=== PATIENT | female | born 1965 | race African-American/Black ===

== ENCOUNTER 2021-10-17 10:36 | Inpatient (IN) | payer OTHER ==
[2021-10-17 11:42] VITALS: BMI 26.9
[2021-10-17] MEDS ORDERED: LOPERAMIDE HCL 2 MG CAPSULE PO PRN (14:12)
[2021-10-17] MEDS ORDERED: hydrOXYzine PAMOATE 25 MG CAPSULE (FP) PO PRN (14:12)
[2021-10-17] MEDS ORDERED: MENTHOL/PHENOL 1 EACH UD MM PRN (14:12)
[2021-10-17] MEDS ORDERED: IBUPROFEN 400 MG TABLET (FP) PO PRN (14:12)
[2021-10-17] MEDS ORDERED: NICOTINE POLACRILEX 4 MG GUM BUC PRN (14:12)
[2021-10-17] MEDS ORDERED: MAG HYDROX/AL HYDROX/SIMETH 30 ML UNIT-DOSE CUP PO PRN (14:12)
[2021-10-17] MEDS ORDERED: ACETAMINOPHEN 325 MG TABLET (FP) PO PRN (14:12)
[2021-10-17] MEDS ORDERED: NICOTINE 10 MG CARTRIDGE (INHALER) IH PRN (14:12)
[2021-10-17] MEDS ORDERED: MAGNESIUM HYDROX 2400MG/30ML ORAL SUSPENSION 30 ML CUP PO PRN (14:12)
[2021-10-17] MEDS ORDERED: MAGNESIUM CITRATE 300 ML BOTTLE PO PRN (14:12)
[2021-10-17] MEDS ORDERED: ONDANSETRON *ODT* 4 MG TABLET SL PRN (14:12)
[2021-10-17] MEDS ORDERED: BISMUTH SUBSALICYLATE 524 MG/30 ML PO PRN (14:12)
[2021-10-17] MEDS ORDERED: chlordiazePOXIDE HCL 25 MG CAPSULE PO PRN (14:20)
[2021-10-17] MEDS ORDERED: NITROGLYCERIN SUBLINGUAL 1/150 0.4 MG TAB SL PRN (14:31)
[2021-10-17] MEDS: ALBUTEROL SO4 HFA INHALER IH PRN (15:37)
[2021-10-17] MEDS: chlordiazePOXIDE HCL 25 MG CAPSULE PO SCH ×2 (17:50→22:35)
[2021-10-17] MEDS: METHOCARBAMOL 500 MG TABLET PO PRN (17:51)
[2021-10-17] MEDS: metFORMIN HCL 500 MG TABLET (FP) PO SCH (22:34)
[2021-10-17] MEDS: ENALAPRIL MALEATE 2.5 MG TABLET PO SCH (22:34)
[2021-10-17] MEDS: MELATONIN 5 MG TABLETS PO SCH (22:34)
[2021-10-17] MEDS: METOPROLOL TARTRATE 50 MG TABLET (FP) PO SCH (22:35)
[2021-10-17] MEDS: THIAMINE HCL 100 MG TABLET (FP) PO SCH (22:35)
[2021-10-17] MEDS: ATORVASTATIN CA 80 MG TABLET (FP) PO SCH (22:35)
[2021-10-17] MEDS: RANOLAZINE E.R. 1,000 MG TABLET (FP) PO SCH (22:35)
[2021-10-17] MEDS: METHYL SALICYLATE/MENTHOL OINT 30 GM TUBE TP SCH (22:59)
[2021-10-18] MEDS: chlordiazePOXIDE HCL 25 MG CAPSULE PO SCH ×4 (06:45→22:16)
[2021-10-18] MEDS: ACETAMINOPHEN 325 MG TABLET (FP) PO PRN (06:46)
[2021-10-18] MEDS: ALBUTEROL SO4 HFA INHALER IH PRN (09:03)
[2021-10-18] MEDS: ASPIRIN 81 MG CHEWABLE TABLETS PO SCH (09:24)
[2021-10-18] MEDS: METHOCARBAMOL 500 MG TABLET PO PRN ×2 (09:24→18:34)
[2021-10-18] MEDS: METOPROLOL TARTRATE 50 MG TABLET (FP) PO SCH ×2 (09:24→22:05)
[2021-10-18] MEDS: metFORMIN HCL 500 MG TABLET (FP) PO SCH ×2 (09:25→22:05)
[2021-10-18] MEDS: PRENATAL VITAMINS W/ FOLIC ACID TABLET (FP) PO SCH (09:26)
[2021-10-18] MEDS: METHYL SALICYLATE/MENTHOL OINT 30 GM TUBE TP SCH ×2 (09:29→22:06)
[2021-10-18] MEDS: NIFEdipine E.R. 90 MG TABLET PO SCH (09:30)
[2021-10-18] MEDS: RANOLAZINE E.R. 1,000 MG TABLET (FP) PO SCH ×2 (09:31→22:07)
[2021-10-18] MEDS: TIOTROPIUM BROMIDE 2.5 MCG (SPIRIVA) RESPIMAT INHALER IH SCH (09:32)
[2021-10-18] MEDS: ENALAPRIL MALEATE 2.5 MG TABLET PO SCH ×2 (09:35→22:12)
[2021-10-18] MEDS: NICOTINE 14 MG/24 HOURS TOPICAL PATCH TD SCH (09:41)
[2021-10-18] MEDS: ISOSORBIDE MONONITRATE 60 MG TAB.SR.24H (FP) PO SCH (09:41)
[2021-10-18] MEDS ORDERED: FENOFIBRIC ACID 45 MG CAP PO SCH (10:00)
[2021-10-18] MEDS ORDERED: LURASIDONE HCL 40 MG TABLET PO SCH ×2 (10:00→22:00)
[2021-10-18] MEDS ORDERED: FENOFIBRATE 54 MG PO SCH (10:00)
[2021-10-18] MEDS ORDERED: methaDONE HCL 10 MG TABLET PO ONE (11:16)
[2021-10-18] MEDS ORDERED: ALBUTEROL SO4 0.083% IH SOL 2.5 MG/3 ML VIAL.NEB. NEB PRN (11:23)
[2021-10-18] MEDS ORDERED: methaDONE HCL 10 MG TABLET ONE (12:22)
[2021-10-18] MEDS: BUDESONIDE/FORMETEROL FUMARATE 80/4.5 mcg INHALER IH SCH ×2 (13:17→22:07)
[2021-10-18] MEDS: MELATONIN 5 MG TABLETS PO SCH (22:05)
[2021-10-18] MEDS: THIAMINE HCL 100 MG TABLET (FP) PO SCH (22:05)
[2021-10-18] MEDS: ATORVASTATIN CA 80 MG TABLET (FP) PO SCH (22:05)
[2021-10-19] MEDS: chlordiazePOXIDE HCL 25 MG CAPSULE PO SCH ×2 (06:16→10:14)
[2021-10-19] MEDS: ACETAMINOPHEN 325 MG TABLET (FP) PO PRN (08:01)
[2021-10-19] MEDS: BUDESONIDE/FORMETEROL FUMARATE 80/4.5 mcg INHALER IH SCH (10:08)
[2021-10-19] MEDS: TIOTROPIUM BROMIDE 2.5 MCG (SPIRIVA) RESPIMAT INHALER IH SCH (10:09)
[2021-10-19] MEDS: METOPROLOL TARTRATE 50 MG TABLET (FP) PO SCH (10:09)
[2021-10-19] MEDS: metFORMIN HCL 500 MG TABLET (FP) PO SCH (10:09)
[2021-10-19] MEDS: ASPIRIN 81 MG CHEWABLE TABLETS PO SCH (10:09)
[2021-10-19] MEDS: NIFEdipine E.R. 90 MG TABLET PO SCH (10:10)
[2021-10-19] MEDS: PRENATAL VITAMINS W/ FOLIC ACID TABLET (FP) PO SCH (10:10)
[2021-10-19] MEDS: ISOSORBIDE MONONITRATE 60 MG TAB.SR.24H (FP) PO SCH (10:10)
[2021-10-19] MEDS: RANOLAZINE E.R. 1,000 MG TABLET (FP) PO SCH (10:11)
[2021-10-19] MEDS: ENALAPRIL MALEATE 2.5 MG TABLET PO SCH (10:12)
[2021-10-19] MEDS: NICOTINE 14 MG/24 HOURS TOPICAL PATCH TD SCH (10:13)
[2021-10-19] MEDS: METHYL SALICYLATE/MENTHOL OINT 30 GM TUBE TP SCH (10:16)
[2021-10-19] MEDS ORDERED: methaDONE HCL 10 MG TABLET PO ONE (10:56)
[2021-10-19] MEDS ORDERED: INSULIN SLIDING SCALE (NOVOLOG) 1 VIAL SQ SCH (11:00)
[2021-10-19 11:25] VITALS: BP 124/83; PULSE 86; TEMP 96.8
[2021-10-19] MEDS ORDERED: methaDONE HCL 10 MG TABLET ONE (11:29)
[2021-10-19 16:33] LABS: HEMATOCRIT 33.3 % (32.4-45.2); HEMOGLOBIN 10.7 GM/dL (10.7-15.3); MCH 27.7 pg (25.7-33.7); MEAN CELL VOLUME 86.6 fl (80-96); MEAN PLT VOLUME 9.1 fl (7.5-11.1); PLATELET COUNT 141 10^3/uL (134-434); RBC 3.85 M/mm3 (3.60-5.2); RDW 20.4 % (11.6-15.6); WHITE BLOOD COUNT 4.9 K/mm3 (4.0-10.0)
[2021-10-19 16:47] LABS: ALBUMIN 3.4 g/dl (3.4-5.0); CALCIUM 9.5 mg/dL (8.5-10.1)
[2021-10-19 16:50] LABS: CREATININE 0.7 mg/dL (0.55-1.3)
[2021-10-19 16:52] LABS: BILIRUBIN,TOTAL 0.5 mg/dL (0.2-1); TOT PROT 6.9 g/dl (6.4-8.2)
[2021-10-19] MEDS ORDERED: LURASIDONE HCL 40 MG TABLET PO SCH (22:00)
[2021-10-20] MEDS ORDERED: chlordiazePOXIDE HCL 10 MG CAPSULE PO PRN
[2021-10-20] MEDS ORDERED: chlordiazePOXIDE HCL 10 MG CAPSULE PO SCH (05:00)
[2021-10-20 08:10] LABS: SARS-CoV-2 NAA Not Detected (Not Detected)
[2021-10-21] MEDS ORDERED: chlordiazePOXIDE HCL 10 MG CAPSULE PO SCH (05:00)
[2021-10-22] MEDS ORDERED: chlordiazePOXIDE HCL 10 MG CAPSULE PO ONE (05:00)
== END 2021-10-19 12:43 | disposition home or self-care (01) | DRG 773 ==
LOC: YASAS 10:36 → Y6N 13:55
PROVIDERS: ADMIT Allergy & Immunology; ATTEND Allergy & Immunology
PROC: HZ2ZZZZ Detoxification Services for Substance Abuse Treatment (ICD-10-PCS; principal; 2021-10-17)
DX: F10.230 Alcohol dependence with withdrawal, uncomplicated (principal); F11.20 Opioid dependence, uncomplicated; F17.210 Nicotine dependence, cigarettes, uncomplicated; F31.9 Bipolar disorder, unspecified; F20.9 Schizophrenia, unspecified; I25.118 Atherosclerotic heart disease of native coronary artery with other forms of angina pectoris; I11.0 Hypertensive heart disease with heart failure; I50.9 Heart failure, unspecified; E11.65 Type 2 diabetes mellitus with hyperglycemia; J44.9 Chronic obstructive pulmonary disease, unspecified; J45.20 Mild intermittent asthma, uncomplicated; E78.5 Hyperlipidemia, unspecified; Z79.84 Long term (current) use of oral hypoglycemic drugs; I25.2 Old myocardial infarction; Z95.810 Presence of automatic (implantable) cardiac defibrillator; Z99.89 Dependence on other enabling machines and devices; Z88.0 Allergy status to penicillin; Z88.8 Allergy status to other drugs, medicaments and biological substances; Z88.5 Allergy status to narcotic agent
CPT/HCPCS: 36415; 80053; 81025; 82962; 85027; 86593; 86780; 93005; 93010; C9803; U0003; U0005

== ENCOUNTER 2021-11-10 18:22 | Inpatient (IN) | payer OTHER ==
[2021-11-10] MEDS ORDERED: ALBUTEROL SO4 HFA INHALER IH PRN (19:24)
[2021-11-10] MEDS ORDERED: ONDANSETRON *ODT* 4 MG TABLET SL PRN (19:37)
[2021-11-10] MEDS ORDERED: MENTHOL/PHENOL 1 EACH UD MM PRN (19:37)
[2021-11-10] MEDS ORDERED: MAGNESIUM HYDROX 2400MG/30ML ORAL SUSPENSION 30 ML CUP PO PRN (19:37)
[2021-11-10] MEDS ORDERED: ACETAMINOPHEN 325 MG TABLET (FP) PO PRN ×2 (19:37)
[2021-11-10] MEDS ORDERED: METHOCARBAMOL 500 MG TABLET PO PRN (19:37)
[2021-11-10] MEDS ORDERED: hydrOXYzine PAMOATE 25 MG CAPSULE (FP) PO PRN (19:37)
[2021-11-10] MEDS ORDERED: MAG HYDROX/AL HYDROX/SIMETH 30 ML UNIT-DOSE CUP PO PRN (19:37)
[2021-11-10] MEDS ORDERED: P-EPHED 60MG/TRIPROLIDI 2.5MG TABLET PO PRN (19:37)
[2021-11-10] MEDS ORDERED: MAGNESIUM CITRATE 300 ML BOTTLE PO PRN (19:37)
[2021-11-10] MEDS ORDERED: MELATONIN 5 MG TABLETS PO PRN (19:37)
[2021-11-10] MEDS ORDERED: chlordiazePOXIDE HCL 25 MG CAPSULE PO PRN (19:40)
[2021-11-10 20:15] VITALS: BMI 28.7
[2021-11-10] MEDS ORDERED: metFORMIN HCL 500 MG TABLET (FP) PO SCH (22:00)
[2021-11-10] MEDS ORDERED: NITROGLYCERIN SUBLINGUAL 1/150 0.4 MG TAB SL PRN (23:05)
[2021-11-11] MEDS: ATORVASTATIN CA 80 MG TABLET (FP) PO SCH ×2 (00:05→22:36)
[2021-11-11] MEDS: METOPROLOL TARTRATE 50 MG TABLET (FP) PO SCH ×3 (00:05→22:36)
[2021-11-11] MEDS: THIAMINE HCL 100 MG TABLET (FP) PO SCH ×2 (00:05→22:36)
[2021-11-11] MEDS: chlordiazePOXIDE HCL 25 MG CAPSULE PO SCH ×5 (00:05→22:37)
[2021-11-11] MEDS: ENALAPRIL MALEATE 2.5 MG TABLET PO SCH ×3 (00:29→22:37)
[2021-11-11] MEDS: NYSTATIN 500,000 UNITS TABLET PO SCH ×4 (00:29→22:41)
[2021-11-11] MEDS: IBUPROFEN 400 MG TABLET (FP) PO PRN (05:20)
[2021-11-11] MEDS ORDERED: metFORMIN HCL 500 MG TABLET (FP) PO SCH (08:18)
[2021-11-11] MEDS: metFORMIN HCL 500 MG TABLET (FP) PO SCH ×2 (09:39→17:14)
[2021-11-11] MEDS ORDERED: NIFEdipine E.R. 90 MG TABLET PO SCH (10:00)
[2021-11-11] MEDS: ASPIRIN 81 MG CHEWABLE TABLETS PO SCH (10:59)
[2021-11-11] MEDS: PRENATAL VITAMINS W/ FOLIC ACID TABLET (FP) PO SCH (10:59)
[2021-11-11] MEDS: NICOTINE 7 MG/24 HOURS TOPICAL PATCH TD SCH (11:02)
[2021-11-11] MEDS: TIOTROPIUM BROMIDE 2.5 MCG (SPIRIVA) RESPIMAT INHALER IH SCH (11:03)
[2021-11-11 11:39] LABS: HEMATOCRIT 32.2 % (32.4-45.2); HEMOGLOBIN 10.9 GM/dL (10.7-15.3); MCH 28.6 pg (25.7-33.7); MEAN CELL VOLUME 83.9 fl (80-96); MEAN PLT VOLUME 7.8 fl (7.5-11.1); PLATELET COUNT 188 10^3/uL (134-434); RBC 3.83 M/mm3 (3.60-5.2); RDW 19.8 % (11.6-15.6); WHITE BLOOD COUNT 3.7 K/mm3 (4.0-10.0)
[2021-11-11 11:59] LABS: CALCIUM 9.5 mg/dL (8.5-10.1)
[2021-11-11 12:00] LABS: ALBUMIN 3.7 g/dl (3.4-5.0); BLOOD UREA NITROGEN 3.7 mg/dL (7-18)
[2021-11-11] MEDS: NIFEdipine E.R 60 MG TABLET PO SCH (12:01)
[2021-11-11] MEDS: FENOFIBRIC ACID 45 MG CAP PO SCH (12:02)
[2021-11-11] MEDS: ISOSORBIDE MONONITRATE 60 MG TAB.SR.24H (FP) PO SCH (12:02)
[2021-11-11 12:03] LABS: CREATININE 0.8 mg/dL (0.55-1.3)
[2021-11-11 12:05] LABS: TOT PROT 7.1 g/dl (6.4-8.2)
[2021-11-11 12:48] LABS: HIV INTERPRETATION NEGATIVE (NEGATIVE)
[2021-11-11] MEDS: LOPERAMIDE HCL 2 MG CAPSULE PO PRN (13:32)
[2021-11-11] MEDS ORDERED: methaDONE HCL 10 MG TABLET PO SCH (14:00)
[2021-11-11] MEDS ORDERED: methaDONE HCL 10 MG TABLET ONE (14:12)
[2021-11-11] MEDS: BISMUTH SUBSALICYLATE 524 MG/30 ML PO PRN (15:38)
[2021-11-11] MEDS: NICOTINE POLACRILEX 2 MG GUM BUC PRN ×2 (15:59→17:30)
[2021-11-11] MEDS ORDERED: LURASIDONE HCL 40 MG TABLET PO SCH (17:00)
[2021-11-11] MEDS: LURASIDONE HCL 40 MG TABLET PO SCH (22:37)
[2021-11-12] MEDS ORDERED: methaDONE HCL 10 MG TABLET ONE (04:01)
[2021-11-12] MEDS: chlordiazePOXIDE HCL 25 MG CAPSULE PO SCH ×4 (06:13→23:38)
[2021-11-12] MEDS: NYSTATIN 500,000 UNITS TABLET PO SCH ×3 (06:19→23:38)
[2021-11-12] MEDS: metFORMIN HCL 500 MG TABLET (FP) PO SCH ×2 (08:09→18:22)
[2021-11-12] MEDS: IBUPROFEN 400 MG TABLET (FP) PO PRN (08:11)
[2021-11-12] MEDS: BISMUTH SUBSALICYLATE 524 MG/30 ML PO PRN (10:41)
[2021-11-12] MEDS: PRENATAL VITAMINS W/ FOLIC ACID TABLET (FP) PO SCH (10:41)
[2021-11-12] MEDS: ASPIRIN 81 MG CHEWABLE TABLETS PO SCH (10:42)
[2021-11-12] MEDS: FENOFIBRIC ACID 45 MG CAP PO SCH (10:42)
[2021-11-12] MEDS: METOPROLOL TARTRATE 50 MG TABLET (FP) PO SCH ×2 (10:42→23:36)
[2021-11-12] MEDS: TIOTROPIUM BROMIDE 2.5 MCG (SPIRIVA) RESPIMAT INHALER IH SCH (10:43)
[2021-11-12] MEDS: NIFEdipine E.R 60 MG TABLET PO SCH (10:44)
[2021-11-12] MEDS: ISOSORBIDE MONONITRATE 60 MG TAB.SR.24H (FP) PO SCH (10:44)
[2021-11-12] MEDS: ENALAPRIL MALEATE 2.5 MG TABLET PO SCH ×2 (10:44→23:37)
[2021-11-12] MEDS: NICOTINE 7 MG/24 HOURS TOPICAL PATCH TD SCH (10:45)
[2021-11-12 11:10] LABS: SARS-CoV-2 NAA Not Detected (Not Detected)
[2021-11-12 11:10] LABS: SARS-CoV-2 NAA Not Detected (Not Detected)
[2021-11-12] MEDS: LOPERAMIDE HCL 2 MG CAPSULE PO PRN ×2 (12:34→20:28)
[2021-11-12] MEDS: NICOTINE POLACRILEX 2 MG GUM BUC PRN ×2 (13:15→20:38)
[2021-11-12] MEDS: ATORVASTATIN CA 80 MG TABLET (FP) PO SCH (23:36)
[2021-11-12] MEDS: LURASIDONE HCL 40 MG TABLET PO SCH (23:36)
[2021-11-12] MEDS: THIAMINE HCL 100 MG TABLET (FP) PO SCH (23:37)
[2021-11-13] MEDS ORDERED: chlordiazePOXIDE HCL 10 MG CAPSULE PO PRN
[2021-11-13 01:06] VITALS: BP 145/76; PULSE 69; TEMP 97.3
[2021-11-13] MEDS ORDERED: methaDONE HCL 10 MG TABLET ONE (04:22)
[2021-11-13] MEDS: metFORMIN HCL 500 MG TABLET (FP) PO SCH (08:01)
[2021-11-13] MEDS: chlordiazePOXIDE HCL 10 MG CAPSULE PO SCH ×2 (08:02→12:28)
[2021-11-13] MEDS: NYSTATIN 500,000 UNITS TABLET PO SCH (08:02)
[2021-11-13] MEDS ORDERED: NICOTINE 10 MG CARTRIDGE (INHALER) IH SCH (10:00)
[2021-11-13] MEDS: METOPROLOL TARTRATE 50 MG TABLET (FP) PO SCH (12:26)
[2021-11-13] MEDS: ISOSORBIDE MONONITRATE 60 MG TAB.SR.24H (FP) PO SCH (12:26)
[2021-11-13] MEDS: NICOTINE 7 MG/24 HOURS TOPICAL PATCH TD SCH (12:26)
[2021-11-13] MEDS: ASPIRIN 81 MG CHEWABLE TABLETS PO SCH (12:26)
[2021-11-13] MEDS: NIFEdipine E.R 60 MG TABLET PO SCH (12:27)
[2021-11-13] MEDS: PRENATAL VITAMINS W/ FOLIC ACID TABLET (FP) PO SCH (12:27)
[2021-11-13] MEDS: TIOTROPIUM BROMIDE 2.5 MCG (SPIRIVA) RESPIMAT INHALER IH SCH (12:28)
[2021-11-13] MEDS: FENOFIBRIC ACID 45 MG CAP PO SCH (12:28)
[2021-11-13] MEDS: ENALAPRIL MALEATE 2.5 MG TABLET PO SCH (12:28)
[2021-11-14] MEDS ORDERED: chlordiazePOXIDE HCL 10 MG CAPSULE PO SCH (05:00)
== END 2021-11-13 13:05 | disposition short-term general hospital (02) | DRG 773 ==
LOC: YASAS 18:22 → Y6N 23:07
PROVIDERS: ADMIT Allergy & Immunology; ATTEND Allergy & Immunology
PROC: HZ2ZZZZ Detoxification Services for Substance Abuse Treatment (ICD-10-PCS; principal; 2021-11-10)
DX: F10.230 Alcohol dependence with withdrawal, uncomplicated (principal); F11.20 Opioid dependence, uncomplicated; F17.210 Nicotine dependence, cigarettes, uncomplicated; A53.0 Latent syphilis, unspecified as early or late; J45.909 Unspecified asthma, uncomplicated; I25.10 Atherosclerotic heart disease of native coronary artery without angina pectoris; I25.2 Old myocardial infarction; Z95.810 Presence of automatic (implantable) cardiac defibrillator; R07.89 Other chest pain; R94.31 Abnormal electrocardiogram [ECG] [EKG]; Z86.19 Personal history of other infectious and parasitic diseases; Z88.8 Allergy status to other drugs, medicaments and biological substances; Z88.0 Allergy status to penicillin; Z88.5 Allergy status to narcotic agent; Z91.018 Allergy to other foods; Z99.89 Dependence on other enabling machines and devices
CPT/HCPCS: 36415; 80053; 81025; 82962; 85027; 86593; 86780; 87389; 87811; 93005; 93010; C9803; U0003; U0005

== ENCOUNTER 2021-11-13 02:47 | Inpatient (IN) | payer OTHER ==
[2021-11-13] MEDS ORDERED: NITROGLYCERIN SUBLINGUAL 1/150 0.4 MG TAB SL ONE ×2 (05:42→11:51)
[2021-11-13] MEDS ORDERED: NITROGLYCERIN SUBLINGUAL 1/150 0.4 MG TAB ONE ×2 (05:45→06:03)
[2021-11-13 06:40] LABS: BASO % 0.4 % (0-2.0); EOS % 1.5 % (0-4.5); HEMATOCRIT 31.4 % (32.4-45.2); HEMOGLOBIN 10.3 GM/dL (10.7-15.3); MCH 27.9 pg (25.7-33.7); MCHC 32.9 g/dl (32.0-36.0); MEAN CELL VOLUME 84.9 fl (80-96); MEAN PLT VOLUME 7.9 fl (7.5-11.1); MONO % 6.4 % (3.8-10.2); NEUT % 57.7 % (42.8-82.8); PLATELET COUNT 145 10^3/uL (134-434); RDW 19.9 % (11.6-15.6); WHITE BLOOD COUNT 5.7 K/mm3 (4.0-10.0)
[2021-11-13] MEDS ORDERED: ASPIRIN 81 MG CHEWABLE TABLETS PO ONE (06:57)
[2021-11-13 07:00] LABS: CALCIUM 9.5 mg/dL (8.5-10.1)
[2021-11-13 07:02] LABS: ALBUMIN 3.4 g/dl (3.4-5.0); BLOOD UREA NITROGEN 9.3 mg/dL (7-18)
[2021-11-13 07:05] LABS: CREATININE 0.8 mg/dL (0.55-1.3)
[2021-11-13] MEDS ORDERED: ASPIRIN 81 MG CHEWABLE TABLETS ONE (07:05)
[2021-11-13 07:07] LABS: BILIRUBIN,TOTAL 0.5 mg/dL (0.2-1); TOT PROT 6.9 g/dl (6.4-8.2)
[2021-11-13] MEDS ORDERED: ACETAMINOPHEN 1000 MG/100 ML BAG IVPB ONE (08:53)
[2021-11-13] MEDS ORDERED: ACETAMINOPHEN INJECTION 100 ML IVPB ONE (08:55)
[2021-11-13] MEDS ORDERED: ATORVASTATIN CA 80 MG TABLET (FP) PO ONE (09:09)
[2021-11-13] MEDS ORDERED: NITROGLYCERIN SUBLINGUAL 1/150 0.4 MG TAB SL PRN (09:10)
[2021-11-13] MEDS ORDERED: ATORVASTATIN CA 80 MG TABLET (FP) ONE (09:13)
[2021-11-13] MEDS ORDERED: HEPARIN NA (PORCINE) 5,000 UNITS/ML 1ML VIAL IVPUSH PRN (09:20)
[2021-11-13] MEDS ORDERED: CLOPIDOGREL BISULFATE 300 MG TABLET PO ONE (09:30)
[2021-11-13] MEDS ORDERED: MAG HYDROX/AL HYDROX/SIMETH 30 ML UNIT-DOSE CUP PO ONE (09:32)
[2021-11-13] MEDS ORDERED: CLOPIDOGREL BISULFATE 300 MG TABLET ONE (09:34)
[2021-11-13] MEDS ORDERED: CLOPIDOGREL BISULFATE 75 MG TABLET (FP) ONE (09:35)
[2021-11-13] MEDS ORDERED: HEPARIN INFUSION - 25,000 UNITS/500 ML INFUS.BAG IVPB ONE (09:35)
[2021-11-13] MEDS ORDERED: NIFEdipine E.R. 30 MG TABLET ONE (09:39)
[2021-11-13] MEDS ORDERED: METOPROLOL TARTRATE 50 MG TABLET (FP) ONE (09:39)
[2021-11-13] MEDS ORDERED: ENALAPRIL MALEATE 5 MG TABLET ONE (09:39)
[2021-11-13] MEDS ORDERED: MAG HYDROX/AL HYDROX/SIMETH 30 ML UNIT-DOSE CUP ONE (09:39)
[2021-11-13] MEDS ORDERED: FAMOTIDINE 20 MG/50 ML IVPB 20 MG/50 ML MG IVPB ONE (09:40)
[2021-11-13] MEDS ORDERED: FAMOTIDINE 20 MG/50 ML IVPB 20 MG/50 ML MG IVPB SCH (10:00)
[2021-11-13] MEDS ORDERED: NIFEdipine E.R. 90 MG TABLET PO SCH (10:00)
[2021-11-13] MEDS ORDERED: METOPROLOL TARTRATE 50 MG TABLET (FP) PO SCH (10:00)
[2021-11-13] MEDS: ENALAPRIL MALEATE 2.5 MG TABLET PO SCH ×2 (10:12→22:48)
[2021-11-13] MEDS: METOPROLOL TARTRATE 50 MG TABLET (FP) PO SCH ×2 (10:12→21:44)
[2021-11-13] MEDS: FAMOTIDINE 20 MG/50 ML IVPB 20 MG/50 ML MG IVPB SCH ×2 (10:12→21:44)
[2021-11-13] MEDS: HEPARIN - 25,000 UNIT in SODIUM CHLORIDE 495 ML IV SCH (10:15)
[2021-11-13 10:39] LABS: INR 1.13 (0.83-1.09)
[2021-11-13 10:41] LABS: ACTIVATED PTT 29.9 SECONDS (25.2-36.5)
[2021-11-13] MEDS: HEPARIN NA (PORCINE) 5,000 UNITS/ML 1ML VIAL IVPUSH PRN (10:45)
[2021-11-13] MEDS ORDERED: chlordiazePOXIDE HCL 25 MG CAPSULE PO PRN (10:52)
[2021-11-13] MEDS ORDERED: HEPARIN NA (PORCINE) 5,000 UNITS/ML 1ML VIAL ONE (11:15)
[2021-11-13] MEDS ORDERED: chlordiazePOXIDE HCL 10 MG CAPSULE PO PRN (11:19)
[2021-11-13] MEDS: INSULIN SLIDING SCALE (NOVOLOG) 1 VIAL SQ SCH ×2 (11:22→16:59)
[2021-11-13] MEDS ORDERED: amLODIPine BESYLATE 10 MG TABLET (FP) PO ONE (12:08)
[2021-11-13] MEDS: NICOTINE 14 MG/24 HOURS TOPICAL PATCH TD SCH (14:48)
[2021-11-13] MEDS ORDERED: NITROGLYCERIN 25MG/D5W 250ML 25 MG/250 ML ML IVPB SCH (15:00)
[2021-11-13] MEDS: chlordiazePOXIDE HCL 10 MG CAPSULE PO SCH ×2 (19:13→23:01)
[2021-11-14] MEDS ORDERED: ALBUTEROL SO4 HFA INHALER IH ONE (03:51)
[2021-11-14] MEDS ORDERED: ALBUTEROL SO4 HFA INHALER IH PRN (04:07)
[2021-11-14] MEDS: chlordiazePOXIDE HCL 10 MG CAPSULE PO SCH ×4 (05:22→16:47)
[2021-11-14] MEDS ORDERED: methaDONE HCL 10 MG TABLET ONE (06:03)
[2021-11-14] MEDS: INSULIN SLIDING SCALE (NOVOLOG) 1 VIAL SQ SCH ×3 (06:57→16:47)
[2021-11-14 07:37] LABS: HEMATOCRIT 31.2 % (32.4-45.2); HEMOGLOBIN 10.2 GM/dL (10.7-15.3); MCH 28.1 pg (25.7-33.7); MCHC 32.7 g/dl (32.0-36.0); MEAN CELL VOLUME 86.1 fl (80-96); MEAN PLT VOLUME 8.1 fl (7.5-11.1); PLATELET COUNT 141 10^3/uL (134-434); RBC 3.63 M/mm3 (3.60-5.2); WHITE BLOOD COUNT 6.1 K/mm3 (4.0-10.0)
[2021-11-14 07:59] LABS: CHOLESTEROL 123 mg/dL (50-200)
[2021-11-14 08:01] LABS: BLOOD UREA NITROGEN 9.2 mg/dL (7-18); MAGNESIUM 1.3 mg/dL (1.8-2.4); TRIGLYCERIDES 142 mg/dL (0-150)
[2021-11-14 08:02] LABS: LDL CHOLESTEROL (ONLY SJRH) 56 mg/dL (5-100)
[2021-11-14 08:04] LABS: CREATININE 0.9 mg/dL (0.55-1.3); HDL CHOLESTEROL 48 mg/dL (40-60); PHOSPHOROUS 4.8 mg/dL (2.5-4.9)
[2021-11-14] MEDS ORDERED: MAGNESIUM SULF 50% (8.12 MEQ/2 ML-1 GM VIAL) IVPB ONE (08:05)
[2021-11-14] MEDS: ENALAPRIL MALEATE 2.5 MG TABLET PO SCH (10:00)
[2021-11-14] MEDS: METOPROLOL TARTRATE 50 MG TABLET (FP) PO SCH ×2 (10:12→21:49)
[2021-11-14] MEDS: ASPIRIN 81 MG CHEWABLE TABLETS PO SCH (10:12)
[2021-11-14] MEDS: NICOTINE 14 MG/24 HOURS TOPICAL PATCH TD SCH (10:13)
[2021-11-14] MEDS: HEPARIN - 25,000 UNIT in SODIUM CHLORIDE 495 ML IV SCH (10:13)
[2021-11-14] MEDS: amLODIPine BESYLATE 5 MG TABLET (FP) PO SCH (10:13)
[2021-11-14] MEDS: CLOPIDOGREL BISULFATE 75 MG TABLET (FP) PO SCH (10:14)
[2021-11-14] MEDS: FAMOTIDINE 20 MG/50 ML IVPB 20 MG/50 ML MG IVPB SCH ×2 (10:14→21:49)
[2021-11-14] MEDS ORDERED: MAGNESIUM SULF 50% (8.12 MEQ/2 ML-1 GM VIAL) ONE (11:05)
[2021-11-14] MEDS: ISOSORBIDE MONONITRATE 60 MG TAB.SR.24H (FP) PO SCH (15:04)
[2021-11-14 20:59] VITALS: BMI 26.2
[2021-11-14] MEDS: ATORVASTATIN CA 80 MG TABLET (FP) PO SCH (21:48)
[2021-11-15] MEDS ORDERED: chlordiazePOXIDE HCL 10 MG CAPSULE PO ONE (05:00)
[2021-11-15] MEDS ORDERED: methaDONE HCL 10 MG TABLET ONE (05:01)
[2021-11-15] MEDS: ENALAPRIL MALEATE 2.5 MG TABLET PO SCH ×3 (06:08→21:16)
[2021-11-15] MEDS: INSULIN SLIDING SCALE (NOVOLOG) 1 VIAL SQ SCH ×3 (06:43→17:03)
[2021-11-15 07:10] LABS: BASO % 0.3 % (0-2.0); EOS % 1.6 % (0-4.5); HEMATOCRIT 27.6 % (32.4-45.2); HEMOGLOBIN 9.2 GM/dL (10.7-15.3); LYMPH % 30.1 % (8-40); MCH 28.5 pg (25.7-33.7); MCHC 33.2 g/dl (32.0-36.0); MEAN PLT VOLUME 8.3 fl (7.5-11.1); MONO % 6.6 % (3.8-10.2); NEUT % 61.4 % (42.8-82.8); PLATELET COUNT 111 10^3/uL (134-434); RBC 3.21 M/mm3 (3.60-5.2); RDW 20.2 % (11.6-15.6); WHITE BLOOD COUNT 5.9 K/mm3 (4.0-10.0)
[2021-11-15 07:28] LABS: BLOOD UREA NITROGEN 13.3 mg/dL (7-18)
[2021-11-15 07:31] LABS: CALCIUM 9.1 mg/dL (8.5-10.1); MAGNESIUM 1.9 mg/dL (1.8-2.4); PHOSPHOROUS 4.5 mg/dL (2.5-4.9)
[2021-11-15] MEDS: HEPARIN - 25,000 UNIT in SODIUM CHLORIDE 495 ML IV SCH ×2 (10:01→17:23)
[2021-11-15] MEDS: HEPARIN NA (PORCINE) 5,000 UNITS/ML 1ML VIAL IVPUSH PRN (10:05)
[2021-11-15] MEDS: FAMOTIDINE 20 MG/50 ML IVPB 20 MG/50 ML MG IVPB SCH ×2 (10:26→21:15)
[2021-11-15] MEDS: NICOTINE 14 MG/24 HOURS TOPICAL PATCH TD SCH (10:27)
[2021-11-15] MEDS: ISOSORBIDE MONONITRATE 60 MG TAB.SR.24H (FP) PO SCH (10:27)
[2021-11-15] MEDS: ASPIRIN 81 MG CHEWABLE TABLETS PO SCH (10:28)
[2021-11-15] MEDS: amLODIPine BESYLATE 5 MG TABLET (FP) PO SCH (10:28)
[2021-11-15] MEDS: METOPROLOL TARTRATE 50 MG TABLET (FP) PO SCH ×2 (10:28→21:15)
[2021-11-15] MEDS: CLOPIDOGREL BISULFATE 75 MG TABLET (FP) PO SCH (10:29)
[2021-11-15] MEDS: ATORVASTATIN CA 80 MG TABLET (FP) PO SCH (21:15)
[2021-11-16] MEDS ORDERED: chlordiazePOXIDE HCL 10 MG CAPSULE PO PRN
[2021-11-16] MEDS ORDERED: methaDONE HCL 10 MG TABLET ONE (04:22)
[2021-11-16] MEDS ORDERED: chlordiazePOXIDE HCL 10 MG CAPSULE PO SCH (05:00)
[2021-11-16] MEDS: INSULIN SLIDING SCALE (NOVOLOG) 1 VIAL SQ SCH ×2 (06:20→11:48)
[2021-11-16 06:43] VITALS: PULSE 70
[2021-11-16 07:29] LABS: HEMATOCRIT 31.8 % (32.4-45.2); HEMOGLOBIN 10.3 GM/dL (10.7-15.3); MCH 28.3 pg (25.7-33.7); MCHC 32.5 g/dl (32.0-36.0); MEAN CELL VOLUME 87.2 fl (80-96); MEAN PLT VOLUME 8.6 fl (7.5-11.1); PLATELET COUNT 131 10^3/uL (134-434); RBC 3.64 M/mm3 (3.60-5.2); RDW 20.4 % (11.6-15.6); WHITE BLOOD COUNT 6.6 K/mm3 (4.0-10.0)
[2021-11-16 07:47] LABS: CALCIUM 9.1 mg/dL (8.5-10.1)
[2021-11-16 07:48] LABS: BLOOD UREA NITROGEN 10.8 mg/dL (7-18); MAGNESIUM 1.6 mg/dL (1.8-2.4)
[2021-11-16 07:52] LABS: CREATININE 0.8 mg/dL (0.55-1.3)
[2021-11-16] MEDS ORDERED: ACETAMINOPHEN 325 MG TABLET (FP) PO PRN (08:31)
[2021-11-16] MEDS: METOPROLOL TARTRATE 50 MG TABLET (FP) PO SCH (09:23)
[2021-11-16] MEDS: NICOTINE 14 MG/24 HOURS TOPICAL PATCH TD SCH (09:24)
[2021-11-16] MEDS: ASPIRIN 81 MG CHEWABLE TABLETS PO SCH (09:25)
[2021-11-16] MEDS: ISOSORBIDE MONONITRATE 60 MG TAB.SR.24H (FP) PO SCH (09:25)
[2021-11-16] MEDS: ENALAPRIL MALEATE 2.5 MG TABLET PO SCH (09:26)
[2021-11-16] MEDS: CLOPIDOGREL BISULFATE 75 MG TABLET (FP) PO SCH (09:26)
[2021-11-16] MEDS: FAMOTIDINE 20 MG/50 ML IVPB 20 MG/50 ML MG IVPB SCH (09:27)
[2021-11-16] MEDS: amLODIPine BESYLATE 5 MG TABLET (FP) PO SCH (09:27)
[2021-11-16] MEDS: HEPARIN - 25,000 UNIT in SODIUM CHLORIDE 495 ML IV SCH (09:33)
[2021-11-16 11:22] VITALS: BP 134/74; TEMP 98.8
[2021-11-17] MEDS ORDERED: chlordiazePOXIDE HCL 10 MG CAPSULE PO SCH (05:00)
[2021-11-18] MEDS ORDERED: chlordiazePOXIDE HCL 10 MG CAPSULE PO ONE (05:00)
== END 2021-11-16 15:08 | disposition home or self-care (01) | DRG 190 ==
LOC: JER 02:47 → JERBED 08:16 → OBSVTOIN 09:22 → J4W 12:25
PROVIDERS: ADMIT Internal Medicine; ATTEND Internal Medicine
DX: I21.3 ST elevation (STEMI) myocardial infarction of unspecified site (principal); J44.9 Chronic obstructive pulmonary disease, unspecified; I20.1 Angina pectoris with documented spasm; E11.9 Type 2 diabetes mellitus without complications; F10.230 Alcohol dependence with withdrawal, uncomplicated; E83.42 Hypomagnesemia; F25.9 Schizoaffective disorder, unspecified; F11.20 Opioid dependence, uncomplicated; I11.0 Hypertensive heart disease with heart failure; I50.9 Heart failure, unspecified; I16.0 Hypertensive urgency; Z95.0 Presence of cardiac pacemaker; E78.5 Hyperlipidemia, unspecified; E88.81 Metabolic syndrome and other insulin resistance; F17.200 Nicotine dependence, unspecified, uncomplicated
CPT/HCPCS: 36415; 71045-TC-FY; 80048; 80053; 80061; 82962; 83036; 83735; 84100; 84436; 84443; 84484; 85025; 85027; 85610; 85730; 93005; 93010; 93306-TC; 99285-25; C9803-CS; G0378; J1644; U0003; U0005

== ENCOUNTER 2022-02-03 12:08 | Inpatient (IN) | payer OTHER ==
[2022-02-03 12:28] VITALS: BMI 19.1
[2022-02-03] MEDS ORDERED: MAG HYDROX/AL HYDROX/SIMETH 30 ML UNIT-DOSE CUP PO PRN (12:44)
[2022-02-03] MEDS ORDERED: BISMUTH SUBSALICYLATE 524 MG/30 ML PO PRN (12:44)
[2022-02-03] MEDS ORDERED: MAGNESIUM HYDROX 2400MG/30ML ORAL SUSPENSION 30 ML CUP PO PRN (12:44)
[2022-02-03] MEDS ORDERED: ONDANSETRON *ODT* 4 MG TABLET SL PRN (12:44)
[2022-02-03] MEDS ORDERED: DICYCLOMINE HCL 10 MG CAPSULE PO PRN (12:44)
[2022-02-03] MEDS ORDERED: chlordiazePOXIDE HCL 25 MG CAPSULE PO PRN (12:44)
[2022-02-03] MEDS ORDERED: IBUPROFEN 600 MG TABLET (FP) PO PRN (12:44)
[2022-02-03] MEDS ORDERED: IBUPROFEN 400 MG TABLET (FP) PO PRN (12:44)
[2022-02-03] MEDS ORDERED: MAGNESIUM CITRATE 300 ML BOTTLE PO PRN (12:44)
[2022-02-03] MEDS ORDERED: METHOCARBAMOL 500 MG TABLET PO PRN (12:44)
[2022-02-03] MEDS ORDERED: ACETAMINOPHEN 325 MG TABLET (FP) PO PRN ×2 (12:44)
[2022-02-03] MEDS ORDERED: BENZOCAINE/MENTHOL (CHLORASEPTIC ) LOZENGE MM PRN (12:44)
[2022-02-03] MEDS ORDERED: LOPERAMIDE HCL 2 MG CAPSULE PO PRN (12:44)
[2022-02-03] MEDS ORDERED: ALBUTEROL SO4 HFA INHALER IH PRN (12:51)
[2022-02-03] MEDS ORDERED: ONDANSETRON *ODT* 4 MG TABLET ONE (13:59)
[2022-02-03] MEDS ORDERED: chlordiazePOXIDE HCL 25 MG CAPSULE ONE (14:36)
[2022-02-03] MEDS ORDERED: METOPROLOL TARTRATE 25 MG TABLET (FP) ONE (14:36)
[2022-02-03] MEDS ORDERED: hydrOXYzine PAMOATE 25 MG CAPSULE (FP) PO ONE (14:36)
[2022-02-03] MEDS: chlordiazePOXIDE HCL 25 MG CAPSULE PO SCH ×3 (14:45→22:50)
[2022-02-03] MEDS: METOPROLOL TARTRATE 50 MG TABLET (FP) PO SCH ×2 (14:46→22:50)
[2022-02-03] MEDS: hydrOXYzine PAMOATE 25 MG CAPSULE (FP) PO SCH ×3 (14:46→22:51)
[2022-02-03] MEDS: metFORMIN HCL 500 MG TABLET (FP) PO SCH (17:22)
[2022-02-03] MEDS: INSULIN SLIDING SCALE (NOVOLOG) 1 VIAL SQ SCH (18:13)
[2022-02-03] MEDS: PRENATAL VITAMINS W/ FOLIC ACID TABLET (FP) PO SCH (18:13)
[2022-02-03] MEDS: TIOTROPIUM BROMIDE 2.5 MCG (SPIRIVA) RESPIMAT INHALER IH SCH (18:48)
[2022-02-03 18:50] LABS: HIV INTERPRETATION NEGATIVE (NEGATIVE)
[2022-02-03 18:53] LABS: SYPHILIS W/ RPR CONF REACTIVE (NONREACTIVE)
[2022-02-03] MEDS: ATORVASTATIN CA 80 MG TABLET (FP) PO SCH (22:50)
[2022-02-03] MEDS: THIAMINE HCL 100 MG TABLET (FP) PO SCH (22:50)
[2022-02-03] MEDS: MELATONIN 5 MG TABLETS PO SCH (22:51)
[2022-02-03] MEDS: ENALAPRIL MALEATE 2.5 MG TABLET PO SCH (23:34)
[2022-02-04] MEDS: hydrOXYzine PAMOATE 25 MG CAPSULE (FP) PO SCH ×5 (06:26→22:24)
[2022-02-04] MEDS: chlordiazePOXIDE HCL 25 MG CAPSULE PO SCH ×4 (06:27→22:24)
[2022-02-04] MEDS: metFORMIN HCL 500 MG TABLET (FP) PO SCH ×2 (06:27→17:52)
[2022-02-04] MEDS: INSULIN SLIDING SCALE (NOVOLOG) 1 VIAL SQ SCH ×2 (07:02→16:54)
[2022-02-04] MEDS ORDERED: methaDONE HCL 10 MG TABLET PO ONE (09:46)
[2022-02-04 10:13] LABS: HEMATOCRIT 37.7 % (32.4-45.2); HEMOGLOBIN 12.4 GM/dL (10.7-15.3); MCH 29.6 pg (25.7-33.7); MCHC 32.9 g/dl (32.0-36.0); MEAN CELL VOLUME 90.2 fl (80-96); PLATELET COUNT 143 10^3/uL (134-434); RBC 4.18 M/mm3 (3.60-5.2); RDW 17.6 % (11.6-15.6); WHITE BLOOD COUNT 6.1 K/mm3 (4.0-10.0)
[2022-02-04 10:15] LABS: CHLORIDE 96 mmol/L (98-107); SODIUM 133 mmol/L (136-145)
[2022-02-04 10:21] LABS: CALCIUM 9.9 mg/dL (8.5-10.1)
[2022-02-04 10:22] LABS: ANION GAP 13 MMOL/L (8-16); CO2 23 mmol/L (21-32); GLUCOSE,RANDOM 182 mg/dL (74-106)
[2022-02-04] MEDS: PRENATAL VITAMINS W/ FOLIC ACID TABLET (FP) PO SCH (10:23)
[2022-02-04] MEDS: ASPIRIN 81 MG CHEWABLE TABLETS PO SCH (10:24)
[2022-02-04] MEDS: METOPROLOL TARTRATE 50 MG TABLET (FP) PO SCH ×2 (10:24→22:24)
[2022-02-04] MEDS: ENALAPRIL MALEATE 2.5 MG TABLET PO SCH ×2 (10:24→22:25)
[2022-02-04 10:25] LABS: CREATININE 0.6 mg/dL (0.55-1.3); SGOT/AST 46 U/L (15-37); SGPT/ALT 35 U/L (13-61)
[2022-02-04] MEDS: TIOTROPIUM BROMIDE 2.5 MCG (SPIRIVA) RESPIMAT INHALER IH SCH (10:25)
[2022-02-04 10:27] LABS: BILIRUBIN,TOTAL 0.5 mg/dL (0.2-1); TOT PROT 8.3 g/dl (6.4-8.2)
[2022-02-04 10:28] LABS: ALK PHOS 134 U/L (45-117)
[2022-02-04] MEDS ORDERED: methaDONE HCL 10 MG TABLET ONE (10:28)
[2022-02-04 10:49] LABS: BLOOD UREA NITROGEN 2.8 mg/dL (7-18)
[2022-02-04] MEDS: NIFEdipine E.R 60 MG TABLET PO SCH (11:22)
[2022-02-04] MEDS: NICOTINE 10 MG CARTRIDGE (INHALER) IH PRN (12:31)
[2022-02-04] MEDS: NITROGLYCERIN SUBLINGUAL 1/150 0.4 MG TAB SL PRN ×2 (15:33→20:03)
[2022-02-04] MEDS ORDERED: INSULIN (NOVOLOG) ASPART 100 UNITS/ML 10ML VIAL ONE (17:29)
[2022-02-04] MEDS ORDERED: traZODone HCL 50 MG TABLET (FP) PO SCH (22:00)
[2022-02-04] MEDS ORDERED: LURASIDONE HCL 40 MG TABLET PO SCH (22:00)
[2022-02-04] MEDS: FAMOTIDINE 20 MG TABLET PO SCH (22:24)
[2022-02-04] MEDS: ATORVASTATIN CA 80 MG TABLET (FP) PO SCH (22:24)
[2022-02-04] MEDS: MELATONIN 5 MG TABLETS PO SCH (22:24)
[2022-02-04] MEDS: THIAMINE HCL 100 MG TABLET (FP) PO SCH (22:24)
[2022-02-05] MEDS: NITROGLYCERIN SUBLINGUAL 1/150 0.4 MG TAB SL PRN ×2 (01:18→13:11)
[2022-02-05] MEDS: metFORMIN HCL 500 MG TABLET (FP) PO SCH ×2 (06:01→18:11)
[2022-02-05] MEDS: hydrOXYzine PAMOATE 25 MG CAPSULE (FP) PO SCH ×4 (06:01→19:13)
[2022-02-05] MEDS: chlordiazePOXIDE HCL 25 MG CAPSULE PO SCH ×3 (06:01→19:13)
[2022-02-05] MEDS ORDERED: INSULIN (NOVOLOG) ASPART 100 UNITS/ML 10ML VIAL ONE (07:58)
[2022-02-05] MEDS: INSULIN SLIDING SCALE (NOVOLOG) 1 VIAL SQ SCH ×2 (08:00→19:12)
[2022-02-05] MEDS: METOPROLOL TARTRATE 50 MG TABLET (FP) PO SCH (10:18)
[2022-02-05] MEDS: ENALAPRIL MALEATE 2.5 MG TABLET PO SCH (10:19)
[2022-02-05] MEDS: ASPIRIN 81 MG CHEWABLE TABLETS PO SCH (10:19)
[2022-02-05] MEDS: PRENATAL VITAMINS W/ FOLIC ACID TABLET (FP) PO SCH (10:19)
[2022-02-05] MEDS: FAMOTIDINE 20 MG TABLET PO SCH (10:19)
[2022-02-05] MEDS: NIFEdipine E.R 60 MG TABLET PO SCH (10:20)
[2022-02-05] MEDS: TIOTROPIUM BROMIDE 2.5 MCG (SPIRIVA) RESPIMAT INHALER IH SCH (10:20)
[2022-02-05] MEDS: NICOTINE 10 MG CARTRIDGE (INHALER) IH PRN (14:39)
[2022-02-05 19:17] VITALS: BP 137/83; PULSE 96; TEMP 97.1
[2022-02-06] MEDS ORDERED: chlordiazePOXIDE HCL 10 MG CAPSULE PO PRN
[2022-02-06] MEDS ORDERED: chlordiazePOXIDE HCL 10 MG CAPSULE PO SCH (05:00)
[2022-02-07] MEDS ORDERED: chlordiazePOXIDE HCL 10 MG CAPSULE PO SCH (05:00)
[2022-02-08] MEDS ORDERED: chlordiazePOXIDE HCL 10 MG CAPSULE PO ONE (05:00)
== END 2022-02-05 19:50 | disposition left against medical advice (07) | DRG 770 ==
LOC: YASAS 12:08 → Y6N 13:29
PROVIDERS: ADMIT Allergy & Immunology; ATTEND Surgery
PROC: HZ2ZZZZ Detoxification Services for Substance Abuse Treatment (ICD-10-PCS; principal; 2022-02-03)
DX: F10.230 Alcohol dependence with withdrawal, uncomplicated (principal); F12.10 Cannabis abuse, uncomplicated; F17.210 Nicotine dependence, cigarettes, uncomplicated; F19.24 Other psychoactive substance dependence with psychoactive substance-induced mood disorder; F10.282 Alcohol dependence with alcohol-induced sleep disorder; F19.280 Other psychoactive substance dependence with psychoactive substance-induced anxiety disorder; F25.9 Schizoaffective disorder, unspecified; I25.10 Atherosclerotic heart disease of native coronary artery without angina pectoris; I11.0 Hypertensive heart disease with heart failure; I50.9 Heart failure, unspecified; Z95.0 Presence of cardiac pacemaker; E11.9 Type 2 diabetes mellitus without complications; Z79.84 Long term (current) use of oral hypoglycemic drugs; K21.9 Gastro-esophageal reflux disease without esophagitis; G89.29 Other chronic pain; M54.50 Low back pain, unspecified; Z62.810 Personal history of physical and sexual abuse in childhood; Z91.410 Personal history of adult physical and sexual abuse; Z86.2 Personal history of diseases of the blood and blood-forming organs and certain disorders involving the immune mechanism; Z99.89 Dependence on other enabling machines and devices; Z88.5 Allergy status to narcotic agent; Z88.0 Allergy status to penicillin; Z88.8 Allergy status to other drugs, medicaments and biological substances; Z91.013 Allergy to seafood; Z87.19 Personal history of other diseases of the digestive system
CPT/HCPCS: 36415; 80053; 81025; 82962; 84520; 85027; 86593; 86780; 87389; C9803-CS; Q0162; U0003; U0005